=== PATIENT | female | born 1965 | race Caucasian/White ===

== ENCOUNTER 2023-07-12 09:00 | Outpatient (RCR) | payer BC, SELFPAY | END 2023-09-21 13:17 | disposition home or self-care (01) | PROVIDERS: PCP Physician Assistant Surgical; Visit Provider Physician Assistant Surgical | DX: M25.569 Pain in unspecified knee (principal); M54.50 Low back pain, unspecified; Z51.89 Encounter for other specified aftercare | CPT/HCPCS: 97110; 97140; 97161 ==

== ENCOUNTER 2024-06-24 11:15 | Outpatient (RCR) | payer BC, SELFPAY ==
--- OUTSIDE RECORDS SUMMARY | 2024-05-02 12:48 | XMS_ITS | Clinical Summary ---
Author Organization [facility] Address [place], [place] [address] Care Team Providers Care Tool Inspector Name Role Phone Sabrina Bourgeois Primary Care Provider [phone] Kady Cavazos DERRICK BOAT LEVER OPERATOR Unavailable Benita Grady RD Unavailable [phone] Allergies Active Allergy Reactions Criticality Noted Date Comments Azithromycin Hives 06/19/2007 Latex Edema 05/15/2007 Penicillins Rash 05/15/2007 Medications nystatin powder (MYCOSTATIN) powderIndicatio ns:Tinea corporis Apply 1 Strip topically to affected area(s) 2 times daily. 30 g 5 1 Active metroNIDAZOLE (METROGEL) 1 % gelIndications: Rosacea Apply topically to affected area(s) once daily. 45 g 1 3 Active escitalopram oxalate (LEXAPRO) 20 mg tabletIndicatio ns:Depression, major, in remission (HC) Take 1/2 tablet once daily for 2 weeks, then increase to 1 tablet once daily 90 Tablet 3 4 Active celecoxib (CELEBREX) 200 mg capsule Take 200 mg by mouth 2 times daily if needed. 4 Active pantoprazole (PROTONIX) 40 mg delayed-release tabletIndicatio ns:Chronic GERD Take 1 Tablet (40 mg) by mouth once daily before a meal. 90 Tablet 2 4 Active cholecalciferol (Vitamin D) 1,000 unit capsule Take 1 Capsule (1,000 units) by mouth once daily. 4 Active acyclovir (ZOVIRAX) 200 mg capsule Take 1 Capsule (200 mg) by mouth 5 times daily. 25 Capsule 3 04/08/20 24 Discontinu ed(*Med complete/R egimen complete/L evel of care change) Active Problems Problem Noted Date Diagnosed Date Absence of both cervix and uterus, acquired 10/30 Prediabetes 08/18/2023 Abdominal pannus 07/12/2021 Lung nodules 07/12/2021 Obesity, Class II, BMI 35-39.9 06/29/2020 Vitamin D deficiency 06/29/2020 Primary osteoarthritis of both knees 06/29/2020 Allergic rhinitis 09/08/2014 Gastroesophageal reflux disease without esophagi tis Depression, major, in remission Resolved Problems Problem Noted Date Diagnosed Date Resolved Date Tobacco use 06/29/2020 04/02/2021 LLQ pain 04/02/[address] of the abdomen 0 05/10/2022 Encounters Date Type Department Care Team Description 04/10/2024 Telephone [facility] [address] [place] [address] Sabrina Bourgeois PA Results 04/08/2024 7:50 AM ENGINE BOSS Office Visit [facility] [address] [place] [address] Sabrina Bourgeois PA Preoperative Exam (Left [facility] 04/08/2024 Orders Only [facility] [address] [place] [address] Sabrina Bourgeois PA 1 scan: (1-Ord) NFLD-EKG-04/08/24 04/08/2024 Travel 03/20/2024 Orders Only [facility] Scanner 1 scan: (1-Ord) [facility], RIGHT KNEE INJECTION, 03/20/2024 02/05/2024 Refill [facility] [address] [place] [address] Sabrina Bourgeois PA Refill Request (Pantoprazole 40mg tablets) from Last 3 Months Immunizations Name Administration Dates Next Due COVID-19 vaccine (Pfizer-Bio NTech 30mcg/0.3mL) 12YO+ BIVALENT PF, MDV 05/10/2022 COVID-19 vaccine (Connexity NTech 30mcg/0.3mL) PF, MDV 04/02/2021,09/09/2020,08/19/2020 Influenza RIV4 (Age 18+ Year s) PRESERV FREE 01/10/2019 Influenza Virus, Unspecified 02/20/2020, 02/16/2017,02/17/2015,2013,06/28/2013,01/20/2011 Influenza, IIV3 (Age 6-35 mos) 03/03/2009 Influenza, IIV3 (Age >=3 years) 06/28/2013,01/20 Influenza, IIV4 04/03/2023,,04/02/2021,2019 Influenza, IIV4 (=>6mos) MDV 02/16/2017,02/18/20 15,02/20/2014 TD, UNSPECIFIED 06/08/2006 Td (Age >=7 Years) 07/12/2021 Tdap 06/08/2006 Family History * Patient is adopted Medical History Relation Name Comments Cancer-breast Maternal Aunt Cancer-breast Mother Diabetes Mother Relation Name Status Comments Maternal Aunt Alive Mother Alive Social History Tobacco Use Types Packs/Day Years Used Date Smoking Tobacco: Former Cigarettes 0.5 40.1 S tarted: 03/21/1984 Smokeless Tobacco: Never Tobacco Cessation:Counseling Given: Not Answered Alcohol Use Standard Drinks/Week Comments Yes 0 (1 standard drink = 0.6 oz pur e alcohol) rarely C Utilities Answer Date Recorded Do you have trouble paying f or utilities (for example, heat, electricity, water, phone)? Yes 08/17/2023 PHQ-2 Answer Date Recorded PHQ-2 TOTAL SCORE 1 08/17/2023 Social Connections Answer Date Recorded Do you often feel lonely or isolated from those around you? 0 08/17/2023 Financial Resource Strain Answer Date R ecorded Difficulty of Paying Living Expenses 3 08/17/2023 Difficulty of Paying Living Expenses Not on file 08/17/2023 Food Insecurity Answer Date Recorded Do you worry your food will run out before you are able to buy more? 1 08/17/2023 Transportation Needs Answer Date Record ed Does lack of transportation keep you from medica l appointments? 1 08/17/2023 Does lack of transportation keep you from work, meetings or getting things that you need? 1 08/17/2023 Housing Stability Answer Date Recorded What is your housing situation today? 1 08/17/2023 Comments No Sex and Gender Information Value Date Recorded Sex Assigned at Not on file Legal Sex Female 11:59 AM ENGINE BOSS Gender Identity Not on file Sexual Orientation Not on file Obstetrics History Last Filed Vital Signs Vital Sign Reading Time Taken Comments Blood Pressure 128/82 04/08/2024 8:14 AM ENGINE BOSS Pulse 66 04/08/2024 7:49 AM ENGINE BOSS Temperature 37.3 C (99.1 F) 04/18/2023 2:20 PM ENGINE BOSS Respiratory Rate 18 04/18/2023 4:30 PM ENGINE BOSS Oxygen Saturation 96% 04/08/2024 7:49 AM ENGINE BOSS Inhaled Oxygen Concentration - - Weight 105.7 kg (233 lb) 04/08/2024 7:49 AM ENGINE BOSS Height 168 cm (5' 6.14) 04/08/2024 7:49 AM ENGINE BOSS Body Mass Index 37.45 04/08/2024 7:49 AM ENGINE BOSS Plan of Treatment Upcoming Encounters Date Type Department Care Team (Late st Contact Info) Description 05/13/2024 11:10 AM ENGINE BOSS Office Visit [facility] [address] [place] [address] Sabrina Bourgeois PA [address] [place] [address] Health Maintenance Due Date Last Done Comments Pneumococcal series for age 50+ (1 of 2 - PCV) 1985 Zoster (shingles) series for age 50+ (1 of 2) [address] (for lung CA) ag e 50-80 12/23/2022 12/23/2021 Influenza for age 50-64 12/31/2023 04/03/20 23, 02/18/2022, 04/02/2021, Additional history exists Mammogram for age 45-75 08/06/2024 08/07/19 24, 07/12/2022, 07/13/2021, Additional history exists Depression screening for age 12+ 08/30/2024 08/31/2023, 08/17/2023, 08/17/2023, Additional history exists BMI (ht and wt on same day) for age 18+ 04/08/2025 04/08/2024, 08/31/2023, 08/17/2023, Additional history exists Lipids for age 45-75 08/16/2028 08/17/2023, 05/10/2022, 07/12/2021 Colonoscopy through age 75 10/19/2030 10/19/2020 Tetanus booster 07/13/2031 07/12/2021, 11/2006, 06/08/2006 Tdap Completed 06/08/2006 Hepatitis C screening for ag e 18-79 Completed 05/10/2022 HIV for age 15-65 Completed 08/17/2023 COVID-19 vaccine series Completed 01/24/20 24, 05/10/2022, 04/02/2021, Additional history exists Procedures Procedure Name Priority Date/Time Associated Diagnosis Comments ME READING EKG - NO CHARGE, COMP ONLY Routine 04/08/2024 3:42 PM ENGINE BOSS Pre-op exam EKG 12 LEAD Routine 04/08/2024 3:42 PM ENGINE BOSS Pre-op exam HEMOGLOBIN A1C Routine 04/08/2024 9:05 AM ENGINE BOSS Prediabetes BASIC METABOLIC PANEL Routine 04/08/2024 9:05 AM ENGINE BOSS Pre-op exam CBC WITH AUTO DIFFERENTIAL Routine 04/08/2024 9:05 AM ENGINE BOSS Pre-op exam SCAN-OPERATIVE/PROCE DURE REPORT 03/20/2024 12:00 AM ENGINE BOSS ANTI HIV 1/2 Routine 08/17/2023 9:55 AM CDT Screening for HIV (human immunodeficiency virus) LIPID PANEL W REFLEX MEASURED LDL Routine 08/17/2023 9:55 AM CDT Screening for lipid disorders XR MAMMO JAMES BILAT SCREEN Routine 08/07/2023 1:00 PM CDT Visit for screening mammogram LC HCV ANTIBODY RFX TO QUANT PCR Routine 05/10/2022 8:24 AM ENGINE BOSS Need for hepatitis C screening test CT CHEST WO Routine 12/23/2021 8:30 AM CDT Lung nodules COLONOSCOPY 10/19/2020 11:49 AM CDT from Last 3 Months or Most Recently Relevant to Health Maintenance Results * EKG 12 LEAD (04/08/2024 3:42 PM ENGINE BOSS) us Sabrina JACOB EKG ORD Final Resu lt * ME READING EKG - NO CHARGE, COMP ONLY (04/08/2024 3:42 PM ENGINE BOSS) us Sabrina JACOB PB - PROVIDER READINGS Fin al Result * (ABNORMAL) HEMOGLOBIN A1C (04/08/2024 9:05 AM ENGINE BOSS) HEMOGLOBIN A1C 6.6(H) <5.7 % of total Hgb [facility] Comment: For someone without known diabetes, a hemoglobin A1c value of 6.5% or greater indicates that they may have diabetes and this should be confirmed with a follow-up test. For someone with known diabetes, a value <7% indicates that their diabetes is well controlled and a value greater than or equal to 7% indicates suboptimal control. A1c targets should be individualized based on duration of diabetes, age, comorbid conditions, and other considerations. Currently, no consensus exists regarding use of hemoglobin A1c for diagnosis of diabetes for children. Blood BLOOD SPECIMEN / Unknown 04/08/2024 9:05 AM ENGINE BOSS 04/08/2024 9:05 AM ENGINE BOSS Sabrina JACOB CHEMISTRY Final Resu lt [facility] [id number] [place] [address], [facility] [address] [place] [address] * CBC AND DIFFERENTIAL (04/08/2024 9:05 AM ENGINE BOSS) [facility] WHITE BLOOD CELL COUNT 6.0 3.8 - 10.8 Thousand/u L [facility] RED BLOOD CELL COUNT 4.60 3.80 - 5.10 Million/uL [facility] HEMOGLOBIN 14.2 11.7 - 15.5 g/dL [facility] HEMATOCRIT 43.5 35.0 - 45.0 % [facility] MCV 94.6 80.0 - 100.0 fL [facility] MCH 30.9 27.0 - 33.0 pg [facility] MCHC 32.6 32.0 - 36.0 g/dL [facility] Comment: For adults, a slight decrease in the calculated MCHC value (in the range of 30 to 32 g/dL) is most likely not clinically significant; however, it should be interpreted with caution in correlation with other red cell parameters and the patient's clinical condition. RDW 13.3 11.0 - 15.0 % [facility] PLATELET COUNT 214 140 - 400 Thousand/u L [facility] MPV 11.0 7.5 - 12.5 fL [facility] ABSOLUTE NEUTROPHILS 3,732 1,500 - 7,800 cells/uL [facility] ABSOLUTE LYMPHOCYTES 1,650 850 - 3,900 cells/uL [facility] ABSOLUTE MONOCYTES 318 200 - 950 cells/uL [facility] ABSOLUTE EOSINOPHILS 252 15 - 500 cells/uL [facility] ABSOLUTE BASOPHILS 48 0 - 200 cells/uL [facility] NEUTROPHILS 62.2 % [facility] LYMPHOCYTES 27.5 % [facility] MONOCYTES 5.3 % [facility] EOSINOPHILS 4.2 % [facility] BASOPHILS 0.8 % [facility] Blood BLOOD SPECIMEN / Unknown 04/08/2024 9:05 AM ENGINE BOSS 04/08/2024 9:05 AM ENGINE BOSS Sabrina JACOB HEMATOLOGY Final Resu lt Performing Organization Address [facility]/ZIP Co de Phone Number [facility] [address] [place] [address], [place] [phone] [facility] [address] [place] [address] * (ABNORMAL) BASIC METABOLIC PANEL (04/08/2024 9:05 AM ENGINE BOSS) [facility] GLUCOSE 127(H) 65 - 99 mg/dL [facility] Comment: Fasting reference interval For someone without known diabetes, a glucose value >125 mg/dL indicates that they may have diabetes and this should be confirmed with a follow-up test. UREA NITROGEN (BUN) 18 7 - 25 mg/dL [facility] CREATININE 0.58 0.50 - 1.03 mg/dL [facility] EGFR 105 > OR = 60 mL/min/1. 73m2 [facility] BUN/CREATININE RATIO SEE NOTE: 6 - 22 (calc) [facility] Comment: Not Reported: BUN and Creatinine are within reference range. SODIUM 143 135 - 146 mmol/L [facility] POTASSIUM 4.3 3.5 - 5.3 mmol/L [facility] CHLORIDE 107 98 - 110 mmol/L [facility] CARBON DIOXIDE 27 20 - 32 mmol/L [facility] ELECTROLYTE BALANCE 9 7 - 17 mmol/L (calc) [facility] CALCIUM 9.5 8.6 - 10.4 mg/dL [facility] Blood BLOOD SPECIMEN / Unknown 04/08/2024 9:05 AM ENGINE BOSS 04/08/2024 9:05 AM ENGINE BOSS Sabrina JACOB CHEMISTRY Final Resu lt Performing Organization Address [facility]/ZIP Co de Phone Number [facility] [address] [place] [address], [place] [phone] [address] * SCAN-OPERATIVE/PROCEDURE REPORT (03/20/2024 12:00 AM ENGINE BOSS) us Scanner OTHER Final Result * (ABNORMAL) LIPID PANEL W REFLEX MEASURED LDL (08/17/2023 9:55 AM CDT) CHOLESTEROL,TOTAL 193 100 - 199 mg/dL 08/17/2023 5:55 PM CDT [facility] Comment: Cholesterol, Total Reference Ranges Desirable <200 mg/dL Borderline 200-239 mg/dL High >=240 mg/dL TRIGLYCERIDES 184(H) <150 mg/dL 08/17/2023 5:55 PM CDT [facility] HDL CHOLESTEROL 42 >40 mg/dL 5:55 PM CDT [facility] NON-HDL CHOLESTEROL 151(H) <145 mg/dl 08/17/2023 5:55 PM CDT [facility] CHOL/HDL RATIO 4.60(H) <4.50 08/17/2023 5:55 PM CDT [facility] LDL CHOLESTEROL 114 <=130 mg/dL 08/17/2023 5:55 PM CDT [facility] VLDL CHOLESTEROL 37(H) <=30 mg/dL 08/17/2023 5:55 PM CDT [facility] PROVIDER ORDERED STATUS RANDOM 08/17/2023 5:55 PM CDT [facility] Blood BLOOD SPECIMEN / Unknown Venipuncture / Unknown 08/17/2023 9:55 AM CDT 08/17/2023 9:56 AM CDT Sabrina JACOB CHEMISTRY Final Resu lt [facility] [address] [place] [address], * ANTI HIV 1/2 (08/17/2023 9:55 AM CDT) HIV-1/HIV-2 SCREEN Non-Reacti ve Non-Reacti ve 08/17/2023 5:42 PM CDT [facility] Comment:HIV-1 p24 and HIV-1/ HIV-2 Ab Not Detected. Blood BLOOD SPECIMEN / Unknown Venipuncture / Unknown 08/17/2023 9:55 AM CDT 08/17/2023 9:56 AM CDT us Sabrina JACOB SEND OUTS Final Resu lt [facility] [address] [place] [address], [place] * XR MAMMO JAMES BILAT SCREEN (08/07/2023 1:00 PM CDT) Anatomical Region Laterality Modality BREASTS, Breast Left, Breast Right Bilateral Mammography Impressions 08/07/2023 3:22 PM CDT There is no radiographic evidence for malignancy. Recommend annual mammograms. MAMMOGRAM ASSESSMENT: ACR 1 Negative PATIENTS: You will also receive a letter with your examination results in an easy to read format. If you have questions about your results, please contact your referring provider. Narrative 08/07/2023 3:22 PM CDT For Patients: As a result of the Century Cures Act, medical imaging exams and procedure reports are released immediately into your electronic medical record. You may view this report before your referring provider. If you have questions, please contact your health care provider. XR MAMMO JAMES BILAT SCREEN [[id number]] CLINICAL HISTORY: This is an asymptomatic 58 y.o. patient. INDICATION FOR EXAM: Mammogram Screening. TECHNIQUE: CC & MLO views were obtained. This study was evaluated with the assistance of Computer-Aided Detection. Breast Tomosynthesis was used in interpretation. COMPARISON FILM: Yes 07/12/22 [employer] 07/13/21 [facility] [employer] FINDINGS: The breasts have scattered areas of fibroglandular density. There are no dominant masses, suspicious micro calcifications or areas of architectural distortion. us Johanna Clay MD MAMMO Final Res ult * LC HCV ANTIBODY RFX TO QUANT PCR (05/10/2022 8:24 AM ENGINE BOSS) HCV Ab <0.1 0.0 - 0.9 s/co ratio 05/13/2022 8:10 AM ENGINE BOSS [facility] Blood BLOOD SPECIMEN / Unknown Venipuncture / Unknown 05/10/2022 8:24 AM ENGINE BOSS 05/10/2022 8:26 AM ENGINE BOSS Narrative [facility] - 05/13/2022 8:10 AM ENGINE BOSS Performed at: [address] [place] [address] [employer] [place], [place] [id number] Dock Builder: Thor Brown MD, Phone: [phone] Johanna Clay MD LABORATORY Final Res ult Performing Organization Address City/State/[facility] Co de Phone Number [facility] ([facility]) [address] [place] [address], * CT CHEST WO (12/23/2021 8:30 AM CDT) Anatomical Region Laterality Modality CHEST, THORAX, HEART Computed To mography 12/23/2021 10:2 4 AM CDT Impressions 12/23/2021 10:24 AM CDT 1. Small pulmonary nodules described above. 2. Management according to Fleischner society guidelines. 3. No other acute or suspicious imaging abnormalities and postsurgical changes are present in the upper abdomen. FLEISCHNER SOCIETY GUIDELINES - SOLID NODULES: SINGLE LOW RISK - nodule less than 6 mm: No routine follow-up. - nodule 6-8 mm: CT at 6-12 months, then consider CT at 18-24 months. - nodule greater than 8 mm: Consider CT at 3 months, PET/CT or tissue sampling. SINGLE HIGH RISK - nodule less than 6 mm: Optional CT at 12 months. - nodule 6-8 mm: CT at 6-12 months, then CT at 18-24 months. - nodule greater than 8 mm: Consider CT at 3 months, PET/CT or tissue sampling. MULTIPLE LOW RISK - nodule less than 6 mm: No routine follow-up. - nodule 6-8 mm: CT at 3-6 months, then consider CT at 18-24 months. - nodule greater than 8 mm: CT at 3-6 months, then consider CT at 18-24 months. MULTIPLE HIGH RISK - nodule less than 6 mm: Optional CT at 12 months. - nodule 6-8 mm: CT at 3-6 months, then at 18-24 months. - nodule greater than 8 mm: CT at 3-6 months, then at 18-24 months. LOW RISK = minimal or absent history of smoking or other known risk factors. HIGH RISK = history of smoking or other known risk factors. KNOWN RISK FACTORS: history of lung cancer in first-degree relative; exposure to asbestos, radon, or uranium. Please note that all CT scans at this facility use dose modulation, iterative reconstruction, and/or weight-based dosing when appropriate to reduce radiation dose to as low as reasonably achievable. Dictated by Yaw Gray MD @ 12/23/2021 10:24:31 AM (Electronically Signed) Narrative 12/23/2021 10:24 AM CDT For Patients: As a result of the Cures Act, medical imaging exams and procedure reports are released immediately into your electronic medical record. You may view this report before your referring provider. If you have questions, please contact your health care provider. INDICATION : Follow-up pulmonary nodules noted on a CT scan of the abdomen TECHNIQUE : CT Scan of the chest. No intravenous contrast COMPARISON : CT scan abdomen and pelvis 06/28/2021 FINDINGS: Pulmonary nodules: Right upper image 29. Left upper image 37. Right lower image 43. Right lower image 45. Right lower image 51. Left lower image 60. The largest nodule is in the left upper lobe (image 37) this nodule is between 3 and 4 mm. Miscellaneous lungs and pleura: Bilateral linear scars are present in the upper lobes. No pleural effusions. No acute consolidation. Heart/mediastinum: Unremarkable no adenopathy and no pericardial fluid. Upper abdomen: Unremarkable with surgically absent gallbladder. Miscellaneous: Some scarring in the breasts and a benign calcification in the left breast. Skeletal: No suspicious or acute skeletal lesions. Procedure Note Yaw Gray MD - 12/23/2021 For Patients: As a result of the Century Cures Act, medical imagingexams and procedure reports are released immediately into your electronicmedical record. You may view this report before your referring provider.If you have questions, please contact your health care provider. INDICATION : Follow-up pulmonary nodules noted on a CT scan of the abdomen TECHNIQUE : CT Scan of the chest. No intravenous contrast COMPARISON : CT scan abdomen and pelvis 06/28/2021 FINDINGS: Pulmonary nodules: Right upper image 29. Left upper image 37. Right lower image 43. Right lower image 45. Right lower image 51. Left lower image 60. The largest nodule is in the left upper lobe (image 37) this nodule isbetween 3 and 4 mm. Miscellaneous lungs and pleura: Bilateral linear scars are present in the upper lobes. No pleuraleffusions. No acute consolidation. Heart/mediastinum: Unremarkable no adenopathy and no pericardial fluid. Upper abdomen: Unremarkable with surgically absent gallbladder. Miscellaneous: Some scarring in the breasts and a benign calcification inthe left breast. Skeletal: No suspicious or acute skeletal lesions. IMPRESSION: 1. Small pulmonary nodules described above. 2. Management according to Fleischner society guidelines. 3. No other acute or suspicious imaging abnormalities and postsurgicalchanges are present in the upper abdomen. FLEISCHNER SOCIETY GUIDELINES - SOLID NODULES: SINGLE LOW RISK - nodule less than 6 mm: No routine follow-up. - nodule 6-8 mm: CT at 6-12 months, then consider CT at 18-24 months. - nodule greater than 8 mm: Consider CT at 3 months, PET/CT or tissuesampling. SINGLE HIGH RISK - nodule less than 6 mm: Optional CT at 12 months. - nodule 6-8 mm: CT at 6-12 months, then CT at 18-24 months. - nodule greater than 8 mm: Consider CT at 3 months, PET/CT or tissuesampling. MULTIPLE LOW RISK - nodule less than 6 mm: No routine follow-up. - nodule 6-8 mm: CT at 3-6 months, then consider CT at 18-24 months. - nodule greater than 8 mm: CT at 3-6 months, then consider CT at 18-24months. MULTIPLE HIGH RISK - nodule less than 6 mm: Optional CT at 12 months. - nodule 6-8 mm: CT at 3-6 months, then at 18-24 months. - nodule greater than 8 mm: CT at 3-6 months, then at 18-24 months. LOW RISK = minimal or absent history of smoking or other known riskfactors. HIGH RISK = history of smoking or other known risk factors. KNOWN RISK FACTORS: history of lung cancer in first-degree relative;exposure to asbestos, radon, or uranium. Please note that all CT scans at this facility use dose modulation,iterative reconstruction, and/or weight-based dosing when appropriate toreduce radiation dose to as low as reasonably achievable. Dictated by Yaw Gray MD @ 12/23/2021 10:24:31 AM (Electronically Signed) us Johanna Clay MD CT Final Res ult * COLONOSCOPY (10/19/2020 11:49 AM CDT) 10/19/2020 11:4 9 AM CDT Narrative Transcriptions Lance Gomez MD - 10/19/2020 12:43 PM CDT Patient Name: Emelia Bell Procedure Date: 10/19/2020 Gender: Female Date of : 1965 Admit Type: Ambulatory Procedure: Colonoscopy Proceduralist: Lance Gomez [facility] Indications/Pre-Op Diagnosis: Abdominal pain in the left lower quadrant, Abnormal CT of the GI tract Medications: Propofol per Anesthesia, GeneralAnesthesia Procedure Description: The patient had risks, benefits and alternatives explained to andgave informed consent. The patient had a stable cardiopulmonary status and judged an adequate candidate for conscious sedation. The colonoscope was passed through the anus and advanced to thececum, identified by appendiceal orifice and ileocecal valve. Thecolonoscopy was performed without difficulty. The patient tolerated the procedure well. The quality of the bowel preparation was good. The ileocecal valve, appendiceal orifice, and rectum were photographed. Complications: No immediate complications. Estimated Blood Loss & Specimen: Estimated blood loss: none. Specimen collected - None Findings: The perianal and digital rectal examinations were normal. Scattered small-mouthed diverticula were found in the sigmoidcolon. The retroflexed view of the distal rectum and anal verge was normaland showed no anal or rectal abnormalities. Impressions/Post-Op Diagnosis: - Diverticulosis in the sigmoid colon. - No specimens collected. Recommendation: - Discharge patient to home. - Resume previous diet. - Continue present medications. - Repeat colonoscopy in 10 years for surveillance. Moderate Sedation: See the other procedure note for documentation of moderate sedationwith intraservice time. Lance Gomez, 10/19/2020 12:43:08 PM This report has been signed electronically. Note Initiated On: 10/19/2020 11:49 AM Lance Gomez MD PROCEDURE ORD Final Res ult from Last 3 Months or Most Recently Relevant to Health Maintenance Insurance [facility] [place] Advance Directives * Full Code (Latest Code Status on File) Date Activated Date Inactivated Comments 04/18/2023 1:44 PM 04/18/2023 8:00 PM Question Answer Comments Code Status Discussion: Discussed * Full Code Date Activated Date Inactivated Comments 10/19/2020 11:38 AM 10/19/2020 3:45 PM Question Answer Comments Code Status Discussion: Per Existing Order Care Teams Tool Inspector Relationship Specialty Start Date End Date Sabrina Bourgeois PA [address] [place] [address] PCP - General Physician Press Feeder [employer] 08/17/23 Kady Cavazos NP [address] [place] [id number] Nurse Practitioner - Family 09/15/[address] [address] Certified Dialysis Technician 10/10/23
== END 2024-08-26 09:28 | disposition home or self-care (01) ==
PROVIDERS: PCP Physician Assistant Surgical; Visit Provider Orthopaedic Surgery
DX: M25.562 Pain in left knee (principal); Z96.659 Presence of unspecified artificial knee joint; Z51.89 Encounter for other specified aftercare
CPT/HCPCS: 97110; 97116; 97140; 97161; 97164

== ENCOUNTER 2024-12-26 05:17 | Emergency (ER) | payer BC, SELFPAY ==
--- OUTSIDE RECORDS SUMMARY | 2024-12-26 05:19 | XMS_ITS | Clinical Summary ---
Author Organization [facility] Address [address] [place] [address] Care Team Providers Care Surveyor Helper Rod Name Role Phone Sabrina Bourgeois Primary Care Provider Kady Cavazos CHILD THERAPIST Unavailable [phone] Unavailable Allergies Active Allergy Reactions Criticality Noted Date Comments Azithromycin Hives 06/19/2007 Latex Edema 05/15/2007 Penicillins Rash 05/15/2007 Medications omeprazole (PRILOSEC) 40 mg Delayed-Release capsuleIndicati ons:Chronic GERD Take 1 Capsule (40 mg) by mouth once daily before a meal. 90 Capsule 3 5 Active fluticasone (50 mcg per actuation) nasal solution (FLONASE)Indica tions:Seasonal allergic rhinitis due to pollen Inhale 2 Sprays in both nostrils once daily. 16 g 11 5 Active cetirizine 10 mg tabletIndicatio ns:Seasonal allergic rhinitis due to pollen Take 1 Tablet (10 mg) by mouth once daily. 90 Tablet 3 5 Active escitalopram oxalate 20 mg tabletIndicatio ns:Depression, major, in remission Take 1 Tablet (20 mg) by mouth once daily in the morning. 90 Tablet 3 5 Active blood-glucose meterIndication s:Type 2 diabetes mellitus without complication, without long-term current use of insulin (HC) Dispense meter covered by pts insurance. 1 Each 5 Active blood sugar diagnostic (Blood Glucose Test) stripIndication s:Type 2 diabetes mellitus without complication, without long-term current use of insulin (HC) Test 1 times per day. 100 Each 3 5 Active lancetsIndicati ons:Type 2 diabetes mellitus without complication, without long-term current use of insulin (HC) Test 1 times per day. 100 Each 3 5 Active clindamycin 300 mg capsule TAKE 2 CAPSULES BY MOUTH 1 HOUR BEFORE DENTAL APPOINTMENT Active Active Problems Problem Noted Date Diagnosed Date Type 2 diabetes mellitus wit hout complication, without long-term current use of insulin 08/13/2024 Absence of both cervix and uterus, acquired [...] Encounters Date Type Department Care Team Description 11/04/2024 Orders Only [facility] Scanner 1 scan: (1-Ord) [facility], INJ OF RT KNEE, 11/04/2024 10/01/2024 8:05 AM CDT Office Visit [facility] [address] [place] [address] Danica Stephens, Mouth/Lip Problem (Possible thrush after doxycycline - mouth feels sore / swollen and tender and throat feels different ) 10/01/2024 Travel from Last 3 Months Immunizations Immunization Administration Dates Next Due COVID-19 vaccine (Rerecipe-Bio NTech 30mcg/0.3mL) 12YO+ BIVALENT PF, MDV 05/10/2022 COVID-19 vaccine (Rerecipe-Bio NTech 30mcg/0.3mL) PF, MDV 04/02/2021,09/09/2020,08/19/2020 Influenza RIV4 (Age 18+ Year s) PRESERV FREE 01/10/2019 Influenza Virus, Unspecified 02/20/2020, 02/16/2017,02/17/2015,2013,06/28/2013,01/20/2011 Influenza, IIV3 (Age 6-35 mos) 03/03/2009 Influenza, IIV3 (Age >=3 years) 06/28/2013,01/20 Influenza, IIV4 04/03/2023, 2,04/02/2021,2019 Influenza, IIV4 (=>6mos) MDV 02/16/2017,02/18/20 15,02/20/2014 TD, UNSPECIFIED 06/08/2006 Td (Age >=7 Years) 07/12/2021 Tdap 06/08/2006 Family History * Patient is adopted Medical History Relation Name Comments Cancer-breast Maternal Aunt Cancer-breast Mother Diabetes Mother Relation Name Status Comments Maternal Aunt Alive Mother Alive Social History Tobacco Use Types Packs/Day Years Used Date Smoking Tobacco: Former Cigarettes 0.5 40.8 S tarted: 03/21/1984 Smokeless Tobacco: Never Tobacco Cessation:Counseling Given: Yes Alcohol Use Standard Drinks/Week Comments Yes 0 (1 standard drink = 0.6 oz pur e alcohol) rarely PHQ-2 Answer Date Recorded PHQ-2 TOTAL SCORE 1 08/13/2024 Social Connections Answer Date Recorded Do you often feel lonely or isolated from those around you? 0 09/14/2024 Financial Resource Strain Answer Date R ecorded Difficulty of Paying Living Expenses 3 09/14/2024 Difficulty of Paying Living Expenses Not on file 09/14/2024 Food Insecurity Answer Date Recorded Do you worry your food will run out before you are able to buy more? 1 09/14/2024 Transportation Needs Answer Date Record ed Does lack of transportation keep you from medica l appointments? 1 09/14/2024 Does lack of transportation keep you from work, meetings or getting things that you need? 1 09/14/2024 Housing Stability Answer Date Recorded What is your housing situation today? 1 09/14/2024 Utilities Answer Date Recorded Do you have trouble paying f or utilities (for example, heat, electricity, water, phone)? 1 09/14/2024 Comments No Sex and Gender Information Value Date Recorded Sex Assigned at Not on file Legal Sex Female 11:59 AM CELLAR PUMPER Gender Identity Not on file Sexual Orientation Not on file Obstetrics History Last Filed Vital Signs Vital Sign Reading Time Taken Comments Blood Pressure 128/82 10/01/2024 7:37 AM CDT Pulse 70 10/01/2024 7:37 AM CDT Temperature 37.3 C (99.1 F) 04/18/2023 2:20 PM CELLAR PUMPER Respiratory Rate 18 04/18/2023 4:30 PM CELLAR PUMPER Oxygen Saturation 96% 10/01/2024 7:37 AM CDT Inhaled Oxygen Concentration - - Weight 104.8 kg (231 lb) 10/01/2024 7:37 AM CDT Height 167.6 cm (5' 6) 08/13/2024 3:02 PM CDT Body Mass Index 37.28 08/13/2024 3:02 PM CDT Plan of Treatment Health Maintenance Due Date Last Done Comments Hepatitis B series for 19+ ( 1 of 3 - 19+ 3-dose series) 1985 Pneumococcal series for age 50+ (1 of 2 - PCV) 1985 Zoster (shingles) series for age 50+ (1 of 2) [address] (for lung CA) ag e 50-80 12/23/2022 12/23/2021 Influenza Vaccine (#1) 2024 , 02/18/2022, 04/02/2021, Additional history exists Mammogram for age 45-75 08/09/2025 08/10/19 25, 08/08/2024, 08/07/2023, Additional history exists BMI (ht and wt on same day) for age 18+ 08/13/2025 08/13/2024, 04/08/2024, 08/31/2023, Additional history exists Depression screening for age 12+ 08/16/2025 08/16/2024, 08/15/2024, 08/13/2024, Additional history exists Lipids for age 45-75 08/13/2029 08/13/2024, 08/17/2023, 05/10/2022, Additional history exists Colonoscopy through age 75 10/19/2030 10/19/2020 Tetanus booster 07/13/2031 07/12/2021, 11/2006, 06/08/2006 Hepatitis C screening for ag e 18-79 Completed 05/10/2022 HIV for age 15-65 Completed 08/17/2023 COVID-19 vaccine series Completed 01/24/20 24, 05/10/2022, 04/02/2021, Additional history exists Procedures Procedure Name Priority Date/Time Associated Diagnosis Comments SCAN-OPERATIVE/PROC EDURE REPORT 11/04/2024 12:00 AM CDT LIPID PANEL W REFLEX MEASURED LDL Routine 08/13/2024 4:12 PM CDT Screening for lipid disorders XR MAMMO JAMES UNI ADDL VIEWS RIGHT DIANNE 08/09/2024 2:42 PM CDT Abnormal mammogram ANTI HIV 1/2 Routine 08/17/2023 9:55 AM CDT Screening for HIV (human immunodeficiency virus) LC HCV ANTIBODY RFX TO QUANT PCR Routine 05/10/2022 8:24 AM CELLAR PUMPER Need for hepatitis C screening test CT CHEST WO Routine 12/23/2021 8:30 AM CDT Lung nodules COLONOSCOPY 10/19/2020 11:49 AM CDT from Last 3 Months or Most Recently Relevant to Health Maintenance Results * SCAN-OPERATIVE/PROCEDURE REPORT (11/04/2024 12:00 AM CDT) us Scanner OTHER Final Result * (ABNORMAL) LIPID PANEL W REFLEX MEASURED LDL (08/13/2024 4:12 PM CDT) CHOLESTEROL, TOTAL 188 <200 mg/dL [facility] HDL CHOLESTEROL 43(L) > OR = 50 mg/dL [facility] TRIGLYCERIDES 111 <150 mg/dL [facility] LDL-CHOLESTEROL 123(H) mg/dL (calc) [facility] Comment: Reference range: <100 Desirable range <100 mg/dL for primary prevention; <70 mg/dL for patients with CHD or diabetic patients with > or = 2 CHD risk factors. LDL-C is now calculated using the Meagan calculation, which is a validated novel method providing better accuracy than the Friedewald equation in the estimation of LDL-C. Kirit APPIAH et al. HELEN. 2013;310(19): 6311-8679 (http://education.Vitasol/faq/VUQ044) CHOL/HDLC RATIO 4.4 <5.0 (calc) [facility] NON HDL CHOLESTEROL 145(H) <130 mg/dL (calc) [facility] Comment: For patients with diabetes plus 1 major ASCVD risk factor, treating to a non-HDL-C goal of <100 mg/dL (LDL-C of <70 mg/dL) is considered a therapeutic option. Blood BLOOD SPECIMEN / Unknown 08/13/2024 4:12 PM CDT 08/13/2024 4:13 PM CDT Narrative [facility] - 08/14/2024 3:04 AM CDT FASTING:YES FASTING: YES Sabrina JACOB CHEMISTRY Final Resu lt [employer] [facility] [address] [place] [address], [facility] [address] [place] [address] * XR MAMMO JAMES UNI ADDL VIEWS RIGHT (08/09/2024 2:42 PM CDT) Anatomical Region Laterality Modality BREASTS, Breast Right Mammograph y 08/09/2024 3:47 PM CDT Impressions 08/10/2024 8:15 AM CDT Benign intramammary lymph node RIGHT breast 9 o'clock 12 cm from the nipple measuring 7 millimeters. No suspicious findings. RECOMMENDATIONS: Routine screening mammography. BI-RADS Category 2: Benign Dictated by: Dylon Herr MD @08/09/2024 3:47:29 PM/demetris PATIENTS: You will also receive a letter with your examination results in an easy to read format. If you have questions about your results, please contact your referring provider. Narrative 08/10/2024 8:15 AM CDT For Patients: As a result of the Century Cures Act, medical imaging exams and procedure reports are released immediately into your electronic medical record. You may view this report before your referring provider. If you have questions, please contact your health care provider. ADDITIONAL VIEWS RIGHT DIGITAL MAMMOGRAM USING TOMOSYNTHESIS, 08/09/2024 RIGHT BREAST ULTRASOUND, 08/09/2024 CLINICAL HISTORY: RIGHT breast mass/asymmetry. COMPARISON: 08/08/2024. TECHNIQUE: Digital RIGHT mammogram in two projections. Tomosynthesis was used in this interpretation. Real-time ultrasound imaging of RIGHT breast with imaging documentation. BREAST COMPOSITION: There are scattered areas of fibroglandular density. FINDINGS: 3D spot compression CC/MLO RIGHT breast mammogram images submitted. Persistent nodular density is present within the lateral RIGHT breast with architectural distortion. Postop changes reduction mammoplasty are present. Targeted RIGHT breast ultrasound performed. At 9 o'clock 12 cm from the nipple, there is a benign intramammary lymph node at posterior depth which measures 7 x 4 x 6 millimeters. Normal internal vascularity. No shadowing lesion. No fibrocystic change. Sabrina JACOB MAMMO Final Resu lt * ANTI HIV 1/2 (08/17/2023 9:55 AM CDT) HIV-1/HIV-2 SCREEN Non-Reacti ve Non-Reacti ve 08/17/2023 5:42 PM CDT [facility] Comment:HIV-1 p24 and HIV-1/ HIV-2 Ab Not Detected. Blood BLOOD SPECIMEN / Unknown Venipuncture / Unknown 08/17/2023 9:55 AM CDT 08/17/2023 9:56 AM CDT Sabrina JACOB SEND OUTS Final Resu lt [facility] [address] [place] [address], [place] * LC HCV ANTIBODY RFX TO QUANT PCR (05/10/2022 8:24 AM CELLAR PUMPER) HCV Ab <0.1 0.0 - 0.9 s/co ratio 05/13/2022 8:10 AM CELLAR PUMPER [facility] Blood BLOOD SPECIMEN / Unknown Venipuncture / Unknown 05/10/2022 8:24 AM CELLAR PUMPER 05/10/2022 8:26 AM CELLAR PUMPER Narrative [facility] ([facility]) - 05/13/2022 8:10 AM CELLAR PUMPER Performed at: [address] [place] [address] [place] [id number] Prop And Scenery Maker: Thor Brown MD, Phone: [phone] Johanna Clay MD LABORATORY Final Res ult [facility] ([facility]) [address] [place] [id number], [place] * CT CHEST WO (12/23/2021 8:30 AM [...] a result of the Cures Act, medical imagingexams and procedure reports [...] MD @ 12/23/2021 10:24:31 AM (Electronically Signed) Johanna Clay MD CT Final Res ult * COLONOSCOPY (10/19/2020 11:49 AM CDT) 10/19/2020 11:4 9 AM CDT Narrative Transcriptions Lance Gomez MD - 10/19/2020 12:43 PM CDT Patient Name: Emelia Bell Procedure Date: 10/19/2020 Gender: Female Date of : 1965 Admit Type: Ambulatory Procedure: Colonoscopy Proceduralist: Lance Lynn [facility] Indications/Pre-Op Diagnosis: Abdominal pain in the left [...] Most Recently Relevant to Health Maintenance Insurance [facility] Advance Directives * Full Code (Latest Code Status on File) Date Activated Date Inactivated Comments 04/18/2023 1:44 PM 04/18/2023 8:00 PM Question Answer Comments Code Status Discussion: Discussed * Full Code Date Activated Date Inactivated Comments 10/19/2020 11:38 AM 10/19/2020 3:45 PM Question Answer Comments Code Status Discussion: Per Existing Order Care Teams Surveyor Helper Rod Relationship Specialty Start Date End Date Sabrina Bourgeois PA [address] [place] [address] PCP - General Physician Grocery Store Associate 08/17/23 Kady Cavazos NP [address] [place] [address] Nurse Practitioner - Family 09/15/[address] [address] Table Setter 10/10/23
[2024-12-26 05:24] VITALS: BP 147/103; PULSE 58; RESP 16; TEMP 36.7; O2SAT 98; BMI 37.1
--- NOTE | 2024-12-26 05:41 | CRLHL7_ITS ---
For Patients: As a result of the Century Cures Act, medical imaging exams and procedure reports are released immediately into your electronic medical record. You may view this report before your referring provider. If you have questions, please contact your health care provider. INDICATION: Right-sided back pain for 3 days COMPARISON: CT abdomen pelvis 06/28/2024 TECHNIQUE: Three view lumbar spine radiographs including AP, lateral, lateral lumbosacral spot. FINDINGS: There are 5 lumbar type vertebral bodies. No fracture. Normal alignment. Very minimal disc space narrowing without endplate remodeling. Mild bilateral lower lumbar facet arthritis. Normal bone mineralization. No focal bone lesions. Cholecystectomy clips. Large stool burden. Pelvic phleboliths. IMPRESSION: Very mild disc space narrowing in the lumbar spine without any endplate remodeling. No acute lumbar spine findings. Dictated by Chastity Cruz MD @ 12/26/2024 6:01:41 AM (Electronically Signed)
[2024-12-26] MEDS: ACETAMINOPHEN 500 MG TABLET 1000 MG PO (05:44)
[2024-12-26] MEDS: KETOROLAC 10 MG TABLET PO (05:45)
[2024-12-26] MEDS: CYCLOBENZAPRINE HCL 10 MG TABLET 5 MG PO (05:46)
--- NOTE | 2024-12-26 05:47 | ED.GENADULT ---
HPI - General Adult General Chief complaint: Back Injury/Pain Stated complaint: back pain Time Seen by Provider: 12/26/24 05:26 Source: patient Mode of arrival: ambulatory Limitations: no limitations History of Present Illness HPI narrative: 59-year-old female presents to the emergency department in the wee hours with a 3 day history of pain in the right mid back area, points along T12-L1 area. Reports that she was doing increased work around the house and has had pain ever since. Worse with movement. She tried taking only 400 mg of ibuprofen yesterday morning, almost 24 hours ago and says that it really was not helping so she did not try taking more. She has not tried Tylenol. She says that she slept poorly overnight. She did not try taking any sleep aids. Did try an [id number] patch with no significant improvement in symptoms. No radiculopathy, no numbness or tingling. No dysuria, hematuria, nausea vomiting, shortness of breath or other systemic symptoms. No fever. No specific trauma or injury. No prior history of back surgeries. Has not been evaluated in clinic or urgent care for symptoms. Denies prior similar symptoms. Reports her past medical history is notable for GERD and anxiety. Home meds are omeprazole on Lexapro. Allergies to azithromycin penicillin sulfas and latex. Denies tobacco use. ROS is notable for the musculoskeletal symptoms as above. Otherwise denies general, skin, other musculoskeletal, GI, cardiovascular respiratory changes. Related Data Home Medications ?Medication ?Instructions ?Recorded ?Confirmed escitalopram oxalate 20 mg tablet 20 mg PO DAILY 12/26/24 12/26/24 omeprazole 20 mg capsule,delayed 20 mg PO DAILY 12/26/24 12/26/24 release Previous Rx's ?Medication ?Instructions ?Recorded cyclobenzaprine 5 mg tablet 5 - 10 mg (1 - 2 x 5 mg) PO TID 12/26/24 PRN muscle spasm #20 tabs prednisone 20 mg tablet 20 - 40 mg (1 - 2 x 20 mg) PO 12/26/24 DAILY #6 tabs Allergies Allergy/AdvReac Type Severity Reaction Status Date / Time azithromycin Allergy Verified 12/26/24 05:30 Penicillins Allergy Verified 12/26/24 05:30 Sulfa (Sulfonamide Allergy Verified 12/26/24 05:30 Antibiotics) latex AdvReac Verified 12/26/24 05:30 PFSH PFSH Social History Smoking Status: Never smoker Second hand tobacco smoke exposure: No How often do you have a drink containing alcohol: never AUDIT-C Alcohol total score: 0 Non-prescribed substance use: denies use Exam Const: Vital Signs, click to edit/add: Vital Signs - 24 hr 12/26/24 05:24 Temperature 98.1 F Pulse Rate [Pulse Oximeter] 58 L Respiratory Rate 16 Blood Pressure [Ri ght Upper Arm] 147/103 H Pulse Oximetry 98 Oxygen Delivery Me thod Room Air Documenting provider has reviewed patient's vital signs: yes Common normals: no apparent distress and alert General appearance: cooperative HENMT: Common normals: normocephalic Head and scalp: normocephalic Face and sinus: normal facial exam Eye: General eye: normal appearance of both eyes Neck & C-Spine: General: normal visual inspection Resp: Common normals: normal respiratory effort, no use of accessory muscles and clear to auscultation bilaterally Effort & inspection: able to speak in complete sentences Auscultation: clear to auscultation bilaterally Cardio: Common normals: regular rate, regular rhythm, S1 normal heart sound, S2 normal heart sound and no murmurs Rate: regular rate Rhythm: regular rhythm Heart sounds: S1 normal and S2 normal : Common normals: no CVA tenderness Bladder/kidney exam: no CVA tenderness Back & Pelvis: Common normals: no CVA tenderness, thoracic and lumbar spine normal to inspection and thoraco-lumbar ROM normal Other: Range of motion is normal to flexion, worsens a little with extension. Spondylosis testing positive on the right. Paraspinal muscle tenderness on the right T12-L2 area primarily. No tenderness on the left. No specific midline tenderness. Straight leg lift is negative. Normal gait. Extremity: Common normals: normal to inspection, normal capillary refill and no pedal edema Neuro: Sensorium/orientation: alert Speech: speech normal Gait (neuro): normal gait Motor exam: strength 5/5 throughout Psych: Common normals: speech normal Attitude: engaged Activity/motor behavior: appropriate eye contact Speech: normal speech Insight: fair Judgement: fair Skin: Common normals: no rashes or lesions noted General skin exam: no rashes or lesions noted Course Course ED Course: 59-year-old female with back pain after increased work and lifting around the house. Decreased overall condition and obesity with poor core strength noted on exam. Exam suspicious for pulled muscle versus minor flare up of underlying osteoarthritic process. Not suggestive of any major trauma or other internal issue such as aortic aneurysm, kidney stone, pancreatitis or other intra-abdominal pathology. Will administer Tylenol, Toradol and low-dose Flexeril and obtain lumbar spine x-rays. Await findings. Reevaluation(s) Time of Reevaluation #1: 06:38 Reevaluation #1: Patient reports that her pain is improving after the Flexeril, Tylenol, Toradol. We reviewed x-ray, no severe osteoarthritis or signs of fracture. Counseled patient that this is most likely a muscle strain, she does have overall some loss of core strength and tone with some posture changes that will put her at risk of re-injury. Scheduling with physical therapy is strongly encouraged. Treat with prednisone 40 mg once daily for another 2 days, 40 mg will be given here in the ED prior to departure. And then 20 mg by mouth on days 4 in 5, try to take with food as she is prone to GERD. I also recommend Tylenol 1000 mg 4 times daily for pain, adding in 6 are mg of ibuprofen if pain is still bothersome. Flexeril 5-10 mg b.i.d. p.r.n. prescription provided as well, use discussed and warnings of possible sedation. Primary care follow-up not improving in 5 days. She verbalizes understanding and agreement. Written instructions were provided and alarm symptoms reviewed Vital Signs Vital signs: Initial Vital Signs Temperature 98.1 F 12/26/24 05:24 Temperature Source Temporal Artery Scan 12/26/24 05:24 Pulse Rate 58 L 12/26/24 05:24 Respiratory Rate 16 12/26/24 05:24 Blood Pressure 147/103 H 12/26/24 05:24 Blood Pressure Mean 117 H 12/26/24 05:24 Blood Pressure Position Sitting 12/26/24 05:24 Pulse Oximetry 98 12/26/24 05:24 Oxygen Delivery Method Room Air 12/26/24 05:24 Vital Signs Temperature 98.1 F 12/26/24 05:24 Pulse Rate 58 L 12/26/24 05:24 Respiratory Rate 16 12/26/24 05:24 Blood Pressure 147/103 H 12/26/24 05:24 Pulse Oximetry 98 12/26/24 05:24 Oxygen Delivery Method Room Air 12/26/24 05:24 Temperature 98.1 F 12/26/24 05:24 Pulse Rate 58 L 12/26/24 05:24 Respiratory Rate 16 12/26/24 05:24 Blood Pressure 147/103 H 12/26/24 05:24 Pulse Oximetry 98 12/26/24 05:24 Oxygen Delivery Method Room Air 12/26/24 05:24 Medications Administered Medications: Generic Name Dose Route Start Last Admin Trade Name Yuliya PRN Reason Stop Dose Admin Acetaminophen 1,000 mg 12/26/24 05:41 12/26/24 05:44 Acetaminophen 500 Mg Tablet PO 12/26/24 05:42 1,000 mg ONCE ONE Administration Cyclobenzaprine HCl 5 mg 12/26/24 05:41 12/26/24 05:46 Cyclobenzaprine Hcl 10 Mg Tablet PO 12/26/24 05:42 5 mg ONCE ONE Administration Ketorolac Tromethamine 10 mg 12/26/24 05:41 12/26/24 05:45 Ketorolac 10 Mg Tablet PO 12/26/24 05:42 10 mg ONCE ONE Administration Prednisone 40 mg 12/26/24 06:32 12/26/24 06:35 Prednisone 20 Mg Tablet PO 12/26/24 06:33 40 mg ONCE ONE Administration Medical Decision Making Imaging Data Lumbar x-ray: Attestation: I have reviewed the pertinent imaging results. My impression: Good alignment. Pretty good joint space as well. No overwhelming signs of arthritis, endplate fractures or abnormality. Radiologist's impression: IMPRESSION: Very mild disc space narrowing in the lumbar spine without any endplate remodeling. No acute lumbar spine findings. Dictated by Chastity Cruz MD @ 12/26/2024 6:01:41 AM Discharge Plan Discharge Clinical Impression: Strain of lumbar region Patient Disposition: Home, Self-Care Condition: Improved Instructions: Low Back Strain (ED), Lower Back Exercises (ED) Additional Instructions: As we discussed, this seems to be a pulled muscle. You do have some chronic posture changes in your back and lower core muscle tone that does put you at risk of re-injury. I would strongly recommend a course of physical therapy for upper back strengthening and to reduce her risk of similar symptoms in the future. Your x-ray did not show any overwhelming arthritis or any type of compression fracture which is great news. We have started you on a course of prednisone, a common anti-inflammatory medication. Try to take this with food as it will cause a little bit of stomach irritation. You were already given your dose for this morning. You will take 2 pills by mouth both Monday and Monday mornings and then 1 pill on Monday and Monday. This will help decrease the inflammation and may help a little bit with pain but will not be the primary treatment for pain. For pain, you will take Tylenol 1000 mg every 6 hours regularly or if you prefer Tylenol arthritis 2 pills every 8 hours. On top of this, at and ibuprofen 600 mg every 6 hours if your pain is still bothersome. I have also given her prescription for Flexeril, a muscle relaxant. It may cause tiredness. I tender recommend saving it for bedtime, 5-10 mg at bedtime but you may take 5 mg during the day if the muscle spasm and pain are very bothersome and the Tylenol and ibuprofen are not helping. It will take the prednisone a few days to fully kick in. If you have not noticed significant improvement in your pain in 5 days, I would recommend he schedule a primary care follow-up or visit a local urgent care. He should come to emergency department if you have sudden loss of bowel and bladder function, inability to move your legs, severe numbness and tingling or have a major fall or injury that caused her back pain suddenly. Activity Level: Activity as Tolerated Discharge Diet: Regular Prescriptions: New prednisone 20 mg tablet 20 - 40 mg PO DAILY Qty: 6 0RF Rx Instructions: Two pills by mouth once daily in the morning on Monday and Monday, then 1 pill by mouth on Monday and Monday cyclobenzaprine 5 mg tablet 5 - 10 mg PO TID PRN (Reason: muscle spasm) Qty: 20 0RF No Action escitalopram oxalate 20 mg tablet 20 mg PO DAILY omeprazole 20 mg capsule,delayed release(DR/EC) 20 mg PO DAILY Follow Up/Referrals: Rosalina Nolan PA-C [Primary Care Provider, Orthopedics] [facility] Inst[facility]
[2024-12-26 06:38] VITALS: BP 135/85; PULSE 64; RESP 16; TEMP 36.7; O2SAT 98
[2024-12-26 06:39] VITALS: BP 135/85; PULSE 64; RESP 16; TEMP 36.7
== END 2024-12-26 06:43 | disposition home or self-care (01) ==
PROVIDERS: Emergency Provider Family Medicine; PCP Physician Assistant Surgical
DX: S39.012A Strain of muscle, fascia and tendon of lower back, initial encounter (principal); X58.XXXA Exposure to other specified factors, initial encounter
CPT/HCPCS: 72100; 99283; 99284; A9270; J7512